=== PATIENT | female | born 1990 | race Caucasian/White ===

== ENCOUNTER 2019-05-19 15:37 | Outpatient (CLI) | payer MEDICAID ==
--- NOTE | 2019-05-19 16:35 | ULT ---
ULTRASOUND LESS THAN 14 WEEKS: History: Early , IUD previously inserted. FINDINGS: Transabdominal ultrasound and vascular duplex with color and spectral doppler imaging was performed. The uterus measures 10.2 x 6.0 x 7.4 cm. Left ovary: 2.9 x 4.6 x 3.8 cm Right ovary: 2.3 x 3.6 x 3 cm 2 x 2.4 x 3.3 cm left ovarian corpus luteal cyst. Intrauterine fetus is noted. heart rate 171 beats/minute. [place] rump length 2.0 cm, 8 weeks 4 d ays. Gestational sac diameter 3.6 cm, 8 weeks 6 days. No intrauterine device is noted. IMPRESSION: Early viable intrauterine at 8 weeks 5 days gestation. EDC 12-24-2019. heart rate 171 beats/minute. No intrauterine device is noted within the uterus. POS: OFF
== END 2019-05-19 15:38 | disposition home or self-care (01) ==
LOC: SCSULT 15:37
PROVIDERS: ATTEND Family Medicine
DX: T83.31XA Breakdown (mechanical) of intrauterine contraceptive device, initial encounter (principal); O99.89 Other specified diseases and conditions complicating pregnancy, childbirth and the puerperium; Z3A.08 8 weeks gestation of pregnancy
CPT/HCPCS: 76856